=== PATIENT | female | born 1955 | race Caucasian/White ===

== ENCOUNTER → 2017-03-26 | Outpatient (CLI) | payer OTHER ==
[~2017-03-26] MED LIST: CALCIUM PO; CHOL200023 PO; CYCL-332 PO; DEXL60CA6 PO; FOL1 PO; LEVO50TA80 PO; METH2.5T43 PO; [UNRECOGNIZED DRUG - REMARK]
[2017-03-26 12:11] LABS: PLATELET COUNT, AUTOMATED 254 K/uL (150-450)
== END ==
LOC: LAB 11:20
PROVIDERS: ATTEND Internal Medicine Rheumatology
DX: Z51.81 Encounter for therapeutic drug level monitoring (principal); M06.09 Rheumatoid arthritis without rheumatoid factor, multiple sites
CPT/HCPCS: 36415; 82040; 82565; 84075; 84450; 84460; 85025; 86140

== ENCOUNTER → 2017-04-23 | Outpatient (CLI) | payer OTHER ==
--- NOTE | 2017-04-24 09:06 | RADIOLOGY IMAGING REPORT ---
[place] [facility] [place] NAME: KAM XIAO : [id number] MR: [id number] V: [id number] EXAM DATE: ORDERING PHYSICIAN: MIGUELANGEL ALDANA TECHNOLOGIST: Zarina Pompa PROCEDURE:BILATERAL DIGITAL SCREENING MAMMOGRAM WITH CAD ASSISTED INTERPRETATION & 3D TOMOSYNTHESIS COMPARISON:Prior mammograms 04/16/16, 12/07/14, 07/29/13, 07/15/12, 07/03/11 INDICATIONS:SCREENING FINDINGS: A small amount of fibroglandular tissue is seen throughout the breasts. The parenchymal pattern has remained stable allowing for difference in mammographic technique & patient positioning. There is no evidence of malignant appearing mass, malignant appearing calcifications or other secondary sign of malignancy in either breast. DIAGNOSTIC CATEGORY 1--NEGATIVE. RECOMMENDATIONS: ROUTINE MAMMOGRAM AND CLINICAL EVALUATION. IMPRESSION: BIRADS 1: Negative No significant abnormality is seen Dictated by: Dayana Argueta M.D. on 04/23/2017 at 16:14 Transcribed by: FRANCESCO on 04/23/2017 at 16:25 Approved by: Dayana Argueta M.D. on 04/24/2017 at 9:05 [facility]
== END ==
LOC: MAMO 00:52
PROVIDERS: ATTEND Physician Assistant
DX: Z12.31 Encounter for screening mammogram for malignant neoplasm of breast (principal)
CPT/HCPCS: 77063; 77067

== ENCOUNTER → 2017-04-24 | Outpatient (REF) ==
[2017-04-24 09:14] LABS: LDL CHOLESTEROL 140 mg/dl
== END ==
DX: Z02.9 Encounter for administrative examinations, unspecified (principal)

== ENCOUNTER 2017-05-15 08:15 | Outpatient (RCR) | payer OTHER ==
--- NOTE | 2017-05-01 16:26 | PT INITIAL EVALUATION ---
MEDICAL DIAGNOSIS: mid back pain, radiculopathy; thoracic region TREATMENT DIAGNOSIS: same DATE OF ONSET: 04/03/17 SUBJECTIVE: Veronica Richards presents to physical therapy with complaints of thoracic pain that started approximately 3-4 weeks, however, she reports that she has felt this pain on and off for over the 10 years, however, prior to this episode, she reported that it would go away on it own. She reports that this episode started without any mechanism of injury (no apparent reason). She rates that she feels like the pain has not changed over the last few weeks. She rates her pain to be from 0-5/10. She reports that the pain does not have a pattern and feels like the pattern is pretty random. She denies any numbness or tingling. She denies any cervical pain. She denies any night pain, unexplained weight loss, recent surgery, imaging, or accidents. Furthermore, she reports normal gait and bladder control. She reports that her pain is worse with sitting, rising, and walking. She reports that her pain is better with standing, bending, and lying (until 3 am). She reports that pain is not changed with improved posture sitting. Pain location is T8-9 facet (L) joints. 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 Thoracic AROM: flexion: NIL with normal end feel. extension: NIL with painful end feel. R rotation: minimal restriction and feels like a block of movement. L rotation: NIL with normal end feel. Palpation: TTP: T8-9 L sided facet joints Sensation: Intact Special Tests: Repeated cervical protrusion and RET with extension: stretch symptoms during testing and no effect following the movements on her thoracic pain---cervical spine cleared. Repeated thoracic extension: pain symptoms during testing and worse (peripheralized) following the test. Repeated thoracic flexion: stretch symptoms during testing and better (centralized) symptoms following the test. R side gliding: stretch symptoms during testing and worse following the test. L side gliding: stretch symptoms during testing and worse following the test. Mobility: Independent Gait: No gait deviations were noted ASSESSMENT: Veronica Richards will benefit from skilled physical therapy addressing the listed impairments to improve function and QOL. Based on this examination, her provisional classification is a anterior derangement that responded well to flexion based exercise that demonstrated signs and symptoms that are consistent with an excellent prognosis. Short Term Goals 1 week: Pt will demonstrate centralized thoracic pain with her specific exercise to improve function and QOL. 4 weeks: Pt will demonstrate abolished thoracic pain and return to full trunk AROM in all directions to return to prior level of function and QOL. Patient's Goals reduce pain PLAN: Patient to be seen for Manual Therapy/STM/MET Strengthening/condition Range of Motion Spinal Stabilization Work Hardening/Cond Stretching Neuromuscular Re-ed Closed Chain Program Posture/Body mechanics Home Exercise Program Therapeutic Activities 2x/Week for 4 Weeks If you have any questions, comments, or concerns about this report or plan, please contact me at . Thank you, Ramon Leger, PT, DPT MTDD
--- NOTE | 2017-05-15 08:45 | PT PLAN OF CARE ---
Physician: JAEL Lucas Patient is being seen: 2x/week Therapist: Ramon Leger, PT, DPT Medical Diagnosis: mid back pain, radiculopathy; thoracic region Treatment Diagnosis: same Date of Onset: 04/03/17 Date of Initial Evaluation: 05/01/17 Date patient was last seen: 05/15/17 Number of treatments: 3 Number of cancellations/No shows: 0 INTERVENTIONS: Manual Therapy/STM/MET Strengthening/condition Range of Motion Spinal Stabilization Work Hardening/Cond Stretching Neuromuscular Re-ed Closed Chain Program Posture/Body mechanics Home Exercise Program Therapeutic Activities GOALS: 1 week: Pt will demonstrate centralized thoracic pain with her specific exercise to improve function and QOL. MET 4 weeks: Pt will demonstrate abolished thoracic pain and return to full trunk AROM in all directions to return to prior level of function and QOL. MET PATIENT'S GOAL: reduce pain Status of Patient's Goals: MET Patient Compliance: Excellent Prognosis: Excellent Reasons for continuing therapy: This is a discharge note for Veronica Richards. She reports that she is doing well. She denies any pain in her mid back and feels like she is 100% back to normal. She reports that she is able to sleep and has return to all of her daily tasks without any mid back pain.She demonstrated full trunk AROM in all directions with normal end feels. She demonstrates abolished pain and return to prior level of function. Furthermore, she was educated on how to prevent reoccurrences and if reoccurrences did occur, what she should do to abolish the pain. As a result, she will be discharged from PT. Posture: She demonstrated minimal forward head, rounded shoulder, thoracic kyphosis, and decreased lumbar lordosis ROM: Cervical AROM: flexion, extension, R/L rotation, R/L sidebending: full AROM with normal end feels. Thoracic AROM: flexion: NIL with normal end feel. extension: NIL with normal feel. R rotation: NIL and normal end feel. L rotation : NIL with normal end feel. Mobility: Independent If you have any questions, please contact me at [phone]. Thank you, Ramon Leger, PT, DPT [facility]
== END 2017-05-15 11:20 | disposition home or self-care (01) ==
LOC: PT 08:15
PROVIDERS: ATTEND Physician Assistant
DX: M54.14 Radiculopathy, thoracic region (principal)
CPT/HCPCS: 97161

== ENCOUNTER → 2017-06-19 | Outpatient (CLI) | payer OTHER ==
[2017-06-19 12:52] LABS: PLATELET COUNT, AUTOMATED 238 K/uL (150-450)
== END ==
LOC: LAB 12:39
PROVIDERS: ATTEND Internal Medicine Rheumatology
DX: Z51.81 Encounter for therapeutic drug level monitoring (principal); M06.09 Rheumatoid arthritis without rheumatoid factor, multiple sites
CPT/HCPCS: 36415; 82040; 82565; 84075; 84450; 84460; 85025; 86140

== ENCOUNTER → 2017-09-25 | Outpatient (CLI) | payer OTHER | LOC: LAB 12:05 | PROVIDERS: ATTEND Physician Assistant | DX: M05.79 Rheumatoid arthritis with rheumatoid factor of multiple sites without organ or systems involvement (principal) | CPT/HCPCS: 36415; 82040; 82247; 82310; 82374; 82435; 82565; 82947; 84075; 84132; 84155; 84295; 84450; 84460; 84520; 85027 ==

== ENCOUNTER → 2017-10-01 | Outpatient (CLI) | payer OTHER ==
--- NOTE | 2017-10-01 14:57 | RADIOLOGY IMAGING REPORT ---
FACILITY: [facility] - [place] PATIENT NAME: Veronica Richards : 1955 MR: [id number] V: [id number] EXAM DATE: ORDERING PHYSICIAN: SID CANO TECHNOLOGIST: Location: [facility] Patient: Veronica Richards : 1955 Visit/Account:[id number] Date of Sevice: 10/01/2017 DEXA Scan HISTORY: Postmenopausal, osteopenia. COMPARISON: 04/03/2011, 04/06/2013 and 09/25/2015. LUMBAR SPINE: The bone mineral density (BMD) measured from L1-L4 correlates with a Z-score of -0.5 and a T-score of -1.7 which is compatible with osteopenia as defined by the World Health Organization. The correspon ding risk of fracture in the lumbar spine is increased 3-4 times compared with a young adult referenc e population. This value has decreased by 7.4 % since the prior study. More than 5% change is consi dered significant. HIP: Bone mineral density (BMD) measured in the left femoral neck region correlates with a Z-score of -1.0 and a T-score of -2.2 which is compatible with osteopenia as defined by the World Health Organizatio n. The corresponding risk of fracture in the hip is increased 4-6 times compared with a young adult reference population. This value in the total hip has decreased by 0.1 % since the prior study. More than 5% change is considered significant. Bone mineral density (BMD) measured in the left Femoral Neck region measures 0.726 g/cm2. IMPRESSION: 1. Lumbar spine: Compatible with osteopenia. There has been significant decrease in the bone workers compensation examiner al density since the previous exam. 2. Left Femoral Neck: Compatible with osteopenia. There has been no significant change in the bone mineral density since the previous exam. 3. Left Femoral Neck: Bone Mineral Density is 0.726 g/cm2 The next DEXA scan of this patient should include the following sites: L1-L4 and left hip. FRAX? WHO Fracture Risk Assessment Tool link: <http://www.shef.ac.uk/FRAX/tool.jsp?locationValue=9> PLEASE NOTE: 1) The World Health Organization defines low BMD as follows: T-score Normal > -1 Osteopenia < -1 and > -2.5 Osteoporosis < -2.5 without fractures Established osteoporosis < -2.5 with fractures 2) In general, you may wish to consider: Diagnosis Treatment Follow-up DEXA Normal BMD Prevention 2-3 years Osteopenia Prevention/therapy 1-2 years Osteoporosis Therapy Yearly 3) Fracture risk estimated from the T-score is more accurate for vertebral fractures (often spontane ous) than for hip fractures. Report Dictated By: Jazmine Jansen MD at 10/01/2017 2:51 PM Report E-Signed By: Jazmine Jansen MD at 10/01/2017 2:53 PM WSN:[id number]
== END ==
LOC: RAD 01:20
PROVIDERS: ATTEND Internal Medicine Rheumatology
DX: M85.89 Other specified disorders of bone density and structure, multiple sites (principal)
CPT/HCPCS: 77080

== ENCOUNTER → 2018-03-31 | Outpatient (CLI) | payer OTHER | LOC: LAB 11:53 | PROVIDERS: ATTEND Internal Medicine Rheumatology | DX: M05.79 Rheumatoid arthritis with rheumatoid factor of multiple sites without organ or systems involvement (principal) | CPT/HCPCS: 36415; 82040; 82247; 82310; 82374; 82435; 82565; 82947; 84075; 84132; 84155; 84295; 84450; 84460; 84520; 85027 ==

== ENCOUNTER → 2018-05-26 | Outpatient (REF) ==
[2018-05-26 09:13] LABS: LDL CHOLESTEROL 95 mg/dl
== END ==
DX: Z02.9 Encounter for administrative examinations, unspecified (principal)

== ENCOUNTER → 2018-06-28 | Outpatient (CLI) | payer OTHER ==
--- NOTE | 2018-06-30 14:46 | RADIOLOGY IMAGING REPORT ---
FACILITY: [facility] - [place] PATIENT NAME: KAM XIAO : [id number] MR: [id number] V: [id number] EXAM DATE: ORDERING PHYSICIAN: MIGUELANGEL ALDANA TECHNOLOGIST: Zarina Pompa PROCEDURE: BILATERAL DIGITAL SCREENING MAMMOGRAM WITH CAD ASSISTED INTERPRETATION & 3D TOMOSYNTHESIS REASON FOR STUDY: Screening. FAMILY HISTORY OF BREAST CANCER: BREAST PROCEDURES/TREATMENTS: COMPARISON: None. VIEWS OBTAINED: 2D & 3D full field CC & MLO. BREAST DENSITY: Breast tissue demonstrates scattered fibroglandular tissue elements. MAMMOGRAM FINDINGS: There is no suspicious mass, calcification, or architectural distortion. IMPRESSION: BIRADS 1: Negative. DIAGNOSTIC CATEGORY 1--NEGATIVE. RECOMMENDATIONS: ROUTINE MAMMOGRAM AND CLINICAL EVALUATION IN 1 YEAR. Dictated by: Joseph Ferguson M.D. on 06/30/2018 at 9:27 Transcribed by: FRANCESCO on 06/30/2018 at 14:13 Approved by: Joseph Ferguson M.D. on 06/30/2018 at 14:46 [facility]
== END ==
LOC: MAMO 01:26
PROVIDERS: ATTEND Physician Assistant
DX: Z12.31 Encounter for screening mammogram for malignant neoplasm of breast (principal)
CPT/HCPCS: 77063; 77067

== ENCOUNTER 2018-09-09 17:15 | Outpatient (RCR) | payer OTHER ==
--- NOTE | 2018-07-22 11:11 | PT INITIAL EVALUATION ---
MEDICAL DIAGNOSIS: Left mid-back/shoulder blade pain TREATMENT DIAGNOSIS: Left thoracic dysfunction, scapular pain DATE OF ONSET: 07/22/18 SUBJECTIVE: Veronica is a 62 year old female presenting to physical therapy following acute on chronic exacerbation of L mid-back/shoulder pain. Pt reports that this pain has been going for just over a year and comes and goes. Pt had PT previously to treat it which improved it only temporarily. Pt reports that at this time performing her HEP previously given to her actually makes her pain worse at times. Pain is located at the T10 level and radiates from the spine to the medial aspect of the scapula. Pt reports that sometimes the pain seems a bit lower along the spine as well but it's hard to tell. Pain is currently absent at evaluation without palpation. Pain at worst is 8-9/10 and occasionally comes on with prolonged sitting and typing but is not consistent. Pain occasionally wakes pt up at night. Pain is described as achy and has had little response to lidocaine patches and creams. Pt has a history of arthritis in the neck but otherwise has no had imaging on the thoracic spine. REHAB PROBLEM LIST: Increased Pain Decreased ROM Decreased Strength Decreased Endurance Decreased Function Decreased ADL's Decreased Mobility PREVIOUS MEDICAL HISTORY: See EMR OCCUPATION: Works in the [employer] OBJECTIVE: Posture: Posture significant for increased thoracic kyphosis. ROM: Shoulder ROM: ER slight pn a end range, IR full and occasionally relieves pain, all other WFL no pain Thoracic ROM: flexion: full no pain, ext: full but stiff feeling, R rotation: minimal restrictions pain only upon return, L rotation: full no pain, R SB: slight pain full, L SB: no pain full. Lumbar ROM: full no pain all motions Strength: Shoulder MMT: 5/5 all motions B without pain Special Tests: Repeated thoracic motion: flexion: increased pain, ext: decreased pain with no centralization ASSESSMENT: Veronica presents with signs and symptoms consistent with thoracic and scapular dysfunction as outlined by the above listed impairments. Physical therapy is indicated to improve function with ADL's and occupational activities. Short Term Goals In 3 weeks pt will improve thoracic and shoulder ROM to full without pain for improved function with ADL's. In 4 weeks pt will have no pain in the L back or shoulder with ADL's for improved function. In 4 weeks pt will be compliant with HEP for maintenance of function with ADL's. Patient's Goals Decrease L shoulder/back pain. PLAN: Patient to be seen for Manual Therapy/STM/MET Strengthening/condition Ice/Heat Range of Motion Spinal Stabilization Ultrasound Stretching Iontophoresis Neuromuscular Re-ed Electrical Stim Posture/Body mechanics Home Exercise Program Mech./Manual Traction Therapeutic Activities 3x/Week for 4 Weeks If you have any questions, comments, or concerns about this report or plan, please contact me at . Thank you, Sury Pat, PT, DPT, CLT Referring Provider Signature: Date: MTDD
--- NOTE | 2018-08-19 15:26 | NUR ---
Please see documentation completed on 08/19/18 for the daily note for treatment provided on 08/16/18 Addendum: 08/19/18 at 1526 by MARLYS LIU PT Amended: Links added.
--- NOTE | 2018-08-24 18:00 | PT PLAN OF CARE ---
Physician: Joseph Echevarria MD Patient is being seen: 2x/Week Therapist: Sury Pat, PT, DPT, CLT Medical Diagnosis: Left mid-back/shoulder blade pain Treatment Diagnosis: Left thoracic dysfunction, scapular pain Date of Onset: 07/22/18 Date of Initial Evaluation: 07/21/18 Date patient was last seen: 08/24/18 Number of treatments: 10 Number of cancellations/No shows: 0 INTERVENTIONS: Manual Therapy/STM/MET Strengthening/condition Ice/Heat Range of Motion Spinal Stabilization Ultrasound Stretching Iontophoresis Neuromuscular Re-ed Electrical Stim Posture/Body mechanics Home Exercise Program Mech./Manual Traction Therapeutic Activities GOALS: In 3 weeks pt will improve thoracic and shoulder ROM to full without pain for improved function with ADL's. In 4 weeks pt will have no pain in the L back or shoulder with ADL's for improved function. In 4 weeks pt will be compliant with HEP for maintenance of function with ADL's. PATIENT'S GOAL: Decrease L shoulder/back pain. Status of Patient's Goals: In Progress Patient Compliance: Good Prognosis: Good Reasons for continuing therapy: With repeated exercise pt shows general centralization of pain with improved thoracic function and mobility. Posture shows improvements while at work with strengthening with increased awareness of postures that increase pain. Pain at last session was 0/10 with pain occasionally coming and going at 3/10. Thoracic mobility remains slightly limited in extension with decreased mobility at the T5-8 level. Further PT to continue progress towards improved mobility and decreased pain as well as postural strengthening. ROM: Shoulder ROM: ER slight pn a end range, IR full and occasionally relieves pain, all other WFL no pain Thoracic ROM: flexion: full no pain, ext: full but stiff feeling, R rotation: full, L rotation: full no pain, R SB: full, L SB: no pain full. Lumbar ROM: full no pain all motions Strength: Shoulder MMT: 5/5 all motions B without pain If you have any questions, please feel free to contact me at [phone]. Thank you, Sury Pat PT, DPT, CLT Referring Provider Signature: Date: MTDD
--- NOTE | 2018-09-10 09:24 | PT PLAN OF CARE ---
Physician: Joseph Echevarria MD Patient is being seen: 2x/Week Therapist: Sury Pat, PT, DPT, CLT Medical Diagnosis: Left mid-back/shoulder blade pain Treatment Diagnosis: Left thoracic dysfunction, scapular pain Date of Onset: 07/22/18 Date of Initial Evaluation: 07/21/18 Date patient was last seen: 09/02/18 Number of treatments: 12 Number of cancellations/No shows: 0 INTERVENTIONS: Manual Therapy/STM/MET Strengthening/condition Ice/Heat Range of Motion Spinal Stabilization Ultrasound Stretching Iontophoresis Neuromuscular Re-ed Electrical Stim Posture/Body mechanics Home Exercise Program Mech./Manual Traction Therapeutic Activities GOALS: In 3 weeks pt will improve thoracic and shoulder ROM to full without pain for improved function with ADL's. MET In 4 weeks pt will have no pain in the L back or shoulder with ADL's for improved function. MET In 4 weeks pt will be compliant with HEP for maintenance of function with ADL's. MET PATIENT'S GOAL: Decrease L shoulder/back pain. Status of Patient's Goals: 3/3 MET Patient Compliance: Good Prognosis: Good Reasons for discharge from therapy: Veronica is to discharge from physical therapy at this time secondary to completion of 3/3 functional goals. At the time of discharge pt was pain free for 1 week with full thoracic and shoulder ROM withotu pain as well as good compliance with HEP. Upon discharge pt is to continue with HEP for 1 MO to maintain stability and then follow up with further repeated exercise or PT if symptoms recur. ROM: Shoulder ROM: full in all motions without pain. Thoracic ROM: full in all motions with out pain. Lumbar ROM: full no pain all motions Strength: Shoulder MMT: 5/5 all motions B without pain If you have any questions, please feel free to contact me at [phone]. Thank you, Sury Pat, PT, DPT, CLT MTDD
== END 2018-09-09 18:00 | disposition home or self-care (01) ==
LOC: PT 17:15
PROVIDERS: ATTEND Physical Medicine & Rehabilitation Pain Medicine
DX: M54.5 Low back pain (principal); M25.512 Pain in left shoulder
CPT/HCPCS: 97161

== ENCOUNTER → 2018-09-28 | Outpatient (CLI) | payer OTHER | LOC: LAB 12:07 | PROVIDERS: ATTEND Internal Medicine Rheumatology | DX: M05.79 Rheumatoid arthritis with rheumatoid factor of multiple sites without organ or systems involvement (principal) | CPT/HCPCS: 36415; 82040; 82247; 82310; 82374; 82435; 82565; 82947; 84075; 84132; 84155; 84295; 84450; 84460; 84520; 85027 ==